=== PATIENT | male | born 1995 | race Caucasian/White ===

== ENCOUNTER 2020-06-21 15:10 | Outpatient (CLI) | payer OTHER, SELFPAY ==
[2020-06-21 15:50] LABS: Hematocrit 47.3 % (42.0-52.0); Hemoglobin 16.9 g/dL (14.0-18.0); Mean Corpuscular HGB Conc 35.7 g/dl (32-36); Mean Corpuscular Hemoglobin 30.5 pg (26-34); Mean Corpuscular Volume 85.4 fl (80-100); Mean Platelet Volume 9.3 fl (7.4-10.4); Platelet Count Result 327 k/mm3 (150-375); Red Blood Count 5.54 M/mm3 (4.6-6.20); Red Cell Distribution Width 11.6 % (11.5-14.5); White Blood Count 7.8 K/mm3 (4.5-10.0)
[2020-06-21 16:31] LABS: Erythrocyte Sedimentation Rate 4 mm/hr (0-20)
[2020-06-21 17:10] LABS: CRP < 0.5 mg/dL (<1.0)
[2020-06-24 16:55] LABS: Tissue Transglutaminase IgG Ab 1 U/mL (<6)
[2020-07-01 13:17] LABS: Tissue Transglutaminase IgA Ab 1 U/mL (<4)
== END 2020-06-21 15:11 | disposition home or self-care (01) ==
LOC: ANHLAB 15:14
PROVIDERS: Visit Provider Internal Medicine Gastroenterology
DX: K52.9 Noninfective gastroenteritis and colitis, unspecified (principal)
CPT/HCPCS: 36415; 83516; 85027; 85652; 86140

== ENCOUNTER 2020-06-22 13:10 | Outpatient (CLI) | payer OTHER, SELFPAY | END 2020-06-22 13:11 | disposition home or self-care (01) | LOC: ANHLAB 13:11 | PROVIDERS: Visit Provider Internal Medicine Gastroenterology | DX: K52.9 Noninfective gastroenteritis and colitis, unspecified (principal) | CPT/HCPCS: 87045; 87046; 87177; 87209; 87427; 89055 ==

== ENCOUNTER 2021-01-03 16:51 | Emergency (ER) | payer OTHER, SELFPAY ==
[2021-01-03 16:56] VITALS: BP 139/84; PULSE 88; RESP 14; TEMP 36.6; O2SAT 100
[2021-01-03 17:02] VITALS: BP 139/84; PULSE 88; RESP 14; TEMP 36.6; O2SAT 100
--- NOTE | 2021-01-03 17:03 | ED.URI ---
HPI - URI/Sore Throat General Chief Complaint: Upper Respiratory Infection Stated Complaint: sinus infection Time Seen by Provider: 01/03/21 17:03 Source: patient, RN notes reviewed and old records reviewed Mode of arrival: ambulatory Limitations: no limitations History of Present Illness HPI Narrative: 25-year-old male presents to the [facility] with complaints of I think I have a sinus infection . Has had sinus pain, pressure, rhinorrhea, frontal headache for the last 3 weeks. Denies fevers. Has tried multiple [id number] products with no relief. Related Data Home Medications Medication Instructions Recorded Confirmed alprazolam 0.25 mg tablet 0.25 mg PO QHS PRN 06/21/20 01/03/21 bupropion HCl 300 mg 24 hr tablet, 300 mg PO QAM 06/21/20 01/03/21 extended release sertraline 100 mg tablet 100 mg PO DAILY 06/21/20 01/03/21 Allergies Allergy/AdvReac Type Severity Reaction Status Date / Time No Known Allergies Allergy Verified 01/03/21 17:00 Review of Systems Review of Systems: All systems reviewed & are unremarkable except as noted in HPI and below Constitutional: Constitutional: Reports no additional constitutional complaints, Denies chills and Denies fever(s) Eyes: Eyes: Reports no additional eye complaints and Denies change in vision ENT: Reports as per HPI, Reports nasal congestion and Denies sore throat Cardiovascular: Cardiovascular: Reports no additional cardiovascular complaints and Denies chest pain Respiratory: Respiratory: Reports no additional respiratory complaints, Denies cough, Denies dyspnea and Denies wheezing Gastrointestinal: Gastrointestinal: Reports no additional gastrointestinal complaints Musculoskeletal: Musculoskeletal: Reports no additional musculoskeletal complaints Integumentary/Breasts: Skin/Breast: Reports system reviewed and no additional complaints, except as docu Neurologic: Reports system reviewed and no additional complaints, except as documented Psychiatric: Psychiatric: Reports no additional psychiatric complaints Allergic/Immunologic: Allergic/Immunologic: Reports no additional allergic/immunologic complaints PMFSH Past Medical History Medical History Anxiety Chronic diarrhea IBS (irritable bowel syndrome) Social History Social History Smoking status: Never smoker Alcohol intake: current Substance use: current Substance use type: marijuana Comments At the time of my signature, I reviewed and agree with the nursing past medical, surgical, social, and family history. There is no relevant family history pertinent to the patient complaint. Exam Const: General: healthy appearing, no acute distress and alert Nutritional Appearance: well nourished Orientation/consciousness: patient oriented x3 Limitations: no limitations HENMT: Head: normal to inspection Ears: hearing grossly normal bilaterally, external ears normal, TM's normal bilaterally, TM normal on the right and TM normal on the left General nose exam: Normal external nose present, Abnormal mucous membranes and turbinates present boggy bilateral (Worse on right than left) and erythematous bilateral and Nasal discharge present mucoid Face and sinus: normal facial exam, no erythema and sinus tenderness frontal and maxillary Mouth: Yes Normal oral and palatal mucosa present Eyes: Conjunctivae: conjunctivae normal Pupils: Equal, round and reactive pupils present Direct Ophthalmoscopy: no photophobia Neck: Neck: normal visual inspection, no lymphadenopathy and no meningeal signs Chest: Chest palpation & inspection: normal inspection of the chest Resp: Effort & Inspection: normal respiratory effort and no use of accessory muscles Auscultation: clear to auscultation bilaterally, no crackles, no rales, no rhonchi and no wheezes Cardio: Rate: regular rate Rhythm: regular rhythm GI: GI Palp: Yes S
== END 2021-01-03 17:32 | disposition home or self-care (01) ==
PROVIDERS: Emergency Provider Nurse Practitioner
DX: J32.9 Chronic sinusitis, unspecified (principal); F41.9 Anxiety disorder, unspecified
CPT/HCPCS: 99213; G0463